=== PATIENT | male | born 1955 | race Caucasian/White ===

== ENCOUNTER 2021-10-07 13:36 | Outpatient (REF) | payer SELFPAY ==
--- NOTE | 2021-10-07 15:41 | MHC.AU.HFA ---
Hearing Instrument Fitting- Adult- Binaural Date of Visit: 10/07/21 Hearing Instruments Dispensed: Right Ear: Associate Professor Of Automation: [employer] Model: Diego 1600 Serial Number: [id number] Repair Warranty: 05/28/2022 Loss and Damage Warranty: Was used with previous clinical trials manager Battery Size: Rechargeable Pre Billing Specialist: Size 3-50 gain Type of Dome: Open Type of Wax Guard: HearClear Left Ear: Associate Professor Of Automation: [employer] Model: Diego 1600 ADIEL Serial Number: [id number] Repair Warranty: 05/28/2022 Loss and Damage Warranty: Was used with previous clinical trials manager Battery Size: Rechargeable Pre Billing Specialist: Size 3-50 gain Type of Dome: Open Type of Wax Guard: HearClear Summary of Fitting: Patient was given a pair of Kunal Diego 1600 RICs from a family friend who . Replaced the previous receivers with size 3-50 gain. Reprogrammed the hearing aids for his hearing loss. Feedback canceller run. Verifit performed and levels adjusted to better reach targets. Patient initially felt the sound was too loud- lowered by 3 steps. Lowered high frequency gain an additional 2 steps to help with initial sharpness. Patient was pleased with the sound of the hearing aids. He felt his tinnitus was significantly lower. Hearing aid care and use were discussed and practiced. Hearing aids were paired to his phone and wayne. Recommendations: Hearing aid follow-up/maintenance as needed. Paid $185 transfer of care fee. Diagnosis Code(s): Primary Diagnosis: H90.3 Bilateral Sensorineural Hearing Loss Secondary Diagnosis: H93.13 Tinnitus, Bilateral Signature: Provider: Mazin Mai, [facility]
== END 2021-10-07 13:37 | disposition home or self-care (01) ==
LOC: HO.HAP 13:36
PROVIDERS: Visit Provider Student in an Organized Health Care Education/Training Program
DX: Z46.1 Encounter for fitting and adjustment of hearing aid (principal); H90.3 Sensorineural hearing loss, bilateral; H93.13 Tinnitus, bilateral
CPT/HCPCS: V5011

== ENCOUNTER 2023-01-30 14:02 | Outpatient (REF) | payer SELFPAY ==
--- NOTE | 2023-01-30 15:51 | MHC.AU.HA3 ---
Hearing Instrument Follow-Up- Binaural Date of Visit: 01/30/23 Right Ear: Make, Model, Color, Serial Number: [id number] Trestle Mechanic Repair Warranty: 05/28/2022 Trestle Mechanic Loss and Damage Warranty: Was used with previous expedition supervisor [facility] Service Plan: Battery Size: Rechargeable Manufacturing Assembler/Slim Tube: Size 3-50 gain Earmold/Dome/CShell/SlimTip: Type of Wax Guard: HearClear Left Ear: Make, Model, Color, Serial Number: [id number] Trestle Mechanic Repair Warranty: 05/28/2022 Trestle Mechanic Loss and Damage Warranty: Was used with previous expedition supervisor [facility] Service Plan: Battery Size: Rechargeable Manufacturing Assembler/Slim Tube: Size 3-50 gain Earmold/Dome/CShell/SlimTip: Type of Wax Guard: HearClear Follow-Up Summary: Thai is here for a hearing aid check. He had his hearing tested 01/26/23 at [facility]NT due to recent vertigo (dx vestibular migraines). He feels his receivers are too short as they share space with his glasses, retention tails are poking him, and he has trouble hearing in noise. Discussed placing glasses next to hearing aids instead of on top, do not recommend a different size adjunct trainer plus they are out of warranty. He agreed with this. Curled tails so the end is not poking ear, reported improved comfort. Added directional P2 restaurant to experiment with. 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 Discussed tinnitus mechanisms and management strategies, plans to use phone to stream brown noise as needed. Recommendations: Recommendations: Please contact our clinic with any questions or concerns. Patient will call if problems persist. Diagnosis Code(s): Primary Diagnosis: H90.3 Bilateral Sensorineural Hearing Loss Secondary Diagnosis: H93.13 Tinnitus, Bilateral Signature: Provider: Mazin Gustafson, [facility]
== END 2023-01-30 14:03 | disposition home or self-care (01) ==
LOC: HO.HAP 14:02
PROVIDERS: Visit Provider Student in an Organized Health Care Education/Training Program
DX: Z46.1 Encounter for fitting and adjustment of hearing aid (principal); H90.3 Sensorineural hearing loss, bilateral
CPT/HCPCS: 92593

== ENCOUNTER 2024-07-15 13:57 | Outpatient (REF) | payer SELFPAY ==
--- NOTE | 2024-07-15 15:39 | MHC.AU.HA3 ---
Hearing Instrument Follow-Up- Binaural Date of Visit: 07/15/24 Right Ear: Tuan, Model, Color, Serial Number: [id number] Parliamentary Librarian Repair Warranty: 05/28/2022 Parliamentary Librarian Loss and Damage Warranty: Was used with previous edge runner [facility] Service Plan: n/a Battery Size: Rechargeable Nursing Informatics Analyst/Slim Tube: Size 3-50 gain no tail Earmold/Dome/CShell/SlimTip:7mm open Type of Wax Guard: HearClear Left Ear: Tuan, Model, Color, Serial Number: [id number] Parliamentary Librarian Repair Warranty: 05/28/2022 Parliamentary Librarian Loss and Damage Warranty: Was used with previous edge runner [facility] Service Plan: n/a Battery Size: Rechargeable Nursing Informatics Analyst/Slim Tube: Size 3-50 gain no tail Earmold/Dome/CShell/SlimTip: 7mm open Type of Wax Guard: HearClear Follow-Up Summary: Thai reports the right tail has come off, wondering if it can be replaced. Cleaned both aids and replaced wax guards. New tail could not be placed on right aid due to crack in auto glass worker where tail is held. Advised of this. Thai opted to go without tails, noting he finds it more comfortable without anyway and asked to have the left tail removed. Noted left aid was scratched and missing microphone cover. Thai reported he had lost it outside in the winter and found it but it was a bit banged up after that. Replaced microphone cover. Listening check positive both aids. Recommendations: Recommendations: Hearing instrument follow-up or maintenance as needed. Diagnosis Code(s): Primary Diagnosis: H90.3 Bilateral Sensorineural Hearing Loss Signature: Provider: Lore Styles, [facility]
--- NOTE | 2024-07-15 15:41 | MHC.AU.CER ---
Cerumen Removal- Binaural Date of Visit: 07/15/24 Medical Conditions: Ear Pain/Otalgia (in childhood) Dizziness/Vertigo Tinnitus (Meniere's) Eczema Psoriasis Medications: No Medications of Concern for Cerumen Removal Procedure: Thai reported feeling that his left ear has been blocked, noted increase in tinnitus as well, questioning wax blockage. Otoscopy reveals visually occluding cerumen bilaterally. Right Ear: Prior to Removal: Complete Occlusion Outcome of Procedure: Moderate amount of cerumen easily removed with lighted curette without incidence, revealed more cerumen remaining deep in canal which could not be reached. Left Ear: Prior to Removal: Complete Occlusion Outcome of Procedure: Significant cerumen removed from canal without incidence to the point that it was no longer occluding but some hard cerumen remained deep in canal that could not be reached with lighted curette. Recommendations: Thai reported feeling of improved hearing with the amount of cerumen that was removed. Suggested trying OTC wax softening ear drops to manage the remaining cerumen. Also discussed seeing ENT to have the remaining wax removed. Diagnosis Code(s): Primary Diagnosis: H61.23 Impacted Cerumen Bilateral Services Performed: Cerumen Removal. Only charged fee for one ear due to incomplete removal from individual ears. Signature: Provider: Lore Styles, [facility]
== END 2024-07-15 13:58 | disposition home or self-care (01) ==
LOC: HO.HAP 13:57
PROVIDERS: Visit Provider Student in an Organized Health Care Education/Training Program
DX: Z46.1 Encounter for fitting and adjustment of hearing aid (principal); H90.3 Sensorineural hearing loss, bilateral
CPT/HCPCS: 92593; 92700